=== PATIENT | female | born 1990 | race Two or more races ===

== ENCOUNTER → 2025-01-17 | Outpatient (CLI) | payer MEDICARE, MEDICAID, SELFPAY ==
[2025-01-17 14:28] LABS: HCG Qualitative,Urine Negative
== END | disposition home or self-care (01) ==
PROVIDERS: PCP Radiology Diagnostic Radiology; Referring Provider Radiology Diagnostic Radiology; Visit Provider Radiology Diagnostic Radiology
DX: Z32.00 Encounter for pregnancy test, result unknown (principal)
CPT/HCPCS: 81025

== ENCOUNTER 2025-01-18 08:55 | Outpatient (RCR) | payer MEDICARE, MEDICAID, SELFPAY ==
--- NOTE | 2025-01-18 10:00 | XR_ITS ---
Examination: PATRICE, hepatobiliary radioisotope scan Gallbladder ejection fraction study. Date and time of exam: January 18, 2025 0950 hrs. Indications: Vomiting heartburn upper abdominal pain after eating beginning 3 months Technique: 5.7 mCi of 99M Hepatolite administered. Serial imaging then obtained from immediate through 60 minutes. 1.0 mcg selective catheter Kinevac administered for gallbladder ejection fraction study. Findings: Radioisotope activity within the liver is reasonably homogenous. Gallbladder, common bile duct small bowel activity noted Impression: Gallbladder activity Abnormal gallbladder ejection fraction 7%
== END 2025-01-23 23:59 | disposition home or self-care (01) ==
LOC: SNUC 08:55
PROVIDERS: PCP Radiology Diagnostic Radiology; Referring Provider Physician Assistant; Visit Provider Radiology Diagnostic Radiology
DX: R93.2 Abnormal findings on diagnostic imaging of liver and biliary tract (principal); Z32.00 Encounter for pregnancy test, result unknown
CPT/HCPCS: 78227; A9537; J2805

== ENCOUNTER → 2025-07-28 | Outpatient (CLI) | payer MEDICARE, MEDICAID, SELFPAY ==
--- NOTE | 2025-07-28 09:00 | XR_ITS ---
EXAM: Single contrast esophagram INDICATION: Dysphagia DATE: 07/28/2025, 9:28 a.m. Fluoroscopy time: 1.4 minutes Dose: 65.21 mGy PROCEDURE: Single contrast barium esophagram performed in multiple positions and multiple projections. Liquid barium contrast passes normally from the oropharynx through the esophagus into the stomach without evidence of delay. No evidence of esophageal mass, stricture, filling defect or diverticulum. No evidence of hiatal hernia or gastroesophageal reflux demonstrated during the exam. IMPRESSION: Negative single contrast barium upper GI exam.
== END | disposition home or self-care (01) ==
PROVIDERS: PCP Physician Assistant; Referring Provider Physician Assistant; Visit Provider Physician Assistant
DX: R13.19 Other dysphagia (principal)
CPT/HCPCS: 74220; A4649